=== PATIENT | female | born 1940 | race Caucasian/White ===

== ENCOUNTER 2022-11-09 09:56 | Emergency (ER) | payer MEDICARE, OTHER ==
[2022-11-09] MEDS ORDERED: Iopamidol 300 61% 100 ML VIAL FS ONE (10:01)
[2022-11-09 10:42] LABS: %Basophils 0.2 % (0.0-2.0); %Eosinophils 0.2 % (0.0-6.0); %Lymphocytes 16.9 % (18.0-47.0); %Monocytes 9.4 % (0.0-10.0); Hemoglobin 14.7 g/dL (12.0-15.5); Mean Corpuscular HGB CONC 34.1 g/dL (32.0-36.0); Mean Corpuscular Hemoglobin 29.8 pg (27.0-33.0); Mean Corpuscular Volume 87.4 fl (81.6-98.3); Mean Platelet Volume 9.2 fl (7.4-10.4); Platelet Count 390 10x3/uL (150-450); RBC Distribution Width 12.5 % (11.5-14.5); Red Blood Cell (RBC) Count 4.93 10x6/uL (3.90-5.03); White Blood Cell (WBC) Count 10.9 10x3/uL (3.5-10.5)
[2022-11-09 11:10] LABS: ALT (SGPT) 15 U/L (8-55); AST (SGOT) 17 U/L (5-34); Albumin 4.1 g/dL (3.4-4.8); Alkaline Phosphatase 66 U/L (40-110); Anion Gap 15 mmol/L (10-20); BUN (Urea Nitrogen) 20 mg/dL (9.8-20.1); Bilirubin, Total 0.8 mg/dL (0.2-1.2); Calc. Creatinine Clearance 0 mL/min (70-130); Calcium 10.1 mg/dL (7.8-10.44); Carbon Dioxide 26 mmol/L (23-31); Chloride 96 mmol/L (98-107); Estimated GFR 67; Globulin 3.6 g/dL (2.4-3.5); Glucose 132 mg/dL (83-110); Lipase 28 U/L (8-78); Potassium 3.1 mmol/L (3.5-5.1); Protein, Total 7.7 g/dL (5.8-8.1); Sodium 134 mmol/L (136-145)
[2022-11-09] MEDS ORDERED: Potassium Chloride 20 MEQ TAB ONE (11:19)
== END 2022-11-09 14:35 | disposition home or self-care (01) ==
LOC: CSHERS 09:56
DX: R19.7 Diarrhea, unspecified (principal); E87.6 Hypokalemia; I10 Essential (primary) hypertension
CPT/HCPCS: 36415; 74177; 80053; 83690; 83735; 85025; 93005; 94760; 96360; Q9967